=== PATIENT | female | born 1980 | race Caucasian/White ===

== ENCOUNTER 2016-09-12 10:10 | Emergency (ER) | payer OTHER ==
[2016-09-12] MEDS ORDERED: Prochlorperazine 10 MG in Sodium Chloride 0.9% 50 ML IV ONE (10:23)
[2016-09-12] MEDS ORDERED: Ketorolac 30 MG/ML SDV IVPUSH ONE (10:23)
[2016-09-12] MEDS ORDERED: diphenhydrAMINE 50 MG/ML SDV IVPUSH ONE (10:23)
[2016-09-12] MEDS ORDERED: Sodium Chloride 0.9% 10 ML Syringe FLUSH PRN (10:25)
[2016-09-12] MEDS ORDERED: Prochlorperazine 10 MG/2 ML SDV IVPUSH ONE (10:26)
[2016-09-12] MEDS ORDERED: Lactated Ringers 1,000 ML IV SCH (10:30)
--- NOTE | 2016-09-12 11:03 | EDM.PDOC ---
ED HPI GENERAL MEDICAL PROBLEM - General Chief Complaint: Headache Stated Complaint: MIGRAINE Time Seen by Provider: 09/12/16 10:45 Source of Information: Reports: Patient History Limitations: Reports: No Limitations - History of Present Illness INITIAL COMMENTS - FREE TEXT/NARRATIVE: 36 yo female here with a "migraine headache". MOLINA began about week ago and was mild until it got much worse today over about 5 minutes. Has nausea without vomiting. Photophobia. No fever. Some intermittent mild L cheek numbness and diffuse dental pain. No chest pain. Has a hx of migraines when she was much younger, but not for years. This one is a little worse than what she remembers. Drove herself to the ER. MOLINA is not unilateral. Onset: Other Onset Date: 09/05/16 Duration: Day(s):, Getting Worse Location: Reports: Head Quality: Reports: Ache Severity: Severe Improves with: Reports: None Worsens with: Reports: None Context: Reports: Other (Hx of migraine) Associated Symptoms: Reports: Headaches, Loss of Appetite, Nausea/Vomiting (no vomiting). 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 Denies: Fever HEENT: Reports: Dental Pain, Ear Pain Respiratory: Reports: No Symptoms Cardiovascular: Reports: No Symptoms Endocrine: Reports: No Symptoms GI/Abdominal: Reports: Nausea : Reports: No Symptoms Musculoskeletal: Reports: No Symptoms Skin: Reports: No Symptoms Neurological: Reports: Headache, Numbness (intermittent L cheek). Denies: Confusion, Dizziness, Seizure, Syncope, Tremors, Trouble Speaking, Difficulty Walking, Weakness, Change in Speech, Gait Disturbance Psychiatric: Reports: No Symptoms - Physical Exam Exam: See Below Exam Limited By: No Limitations General Appearance: Alert, WD/WN, No Apparent Distress Eye Exam: Bilateral Eye: EOMI, PERRL Ears: Normal External Exam, Normal Canal, Hearing Grossly Normal Nose: Normal Inspection, Normal Mucosa, No Blood Throat/Mouth: Normal Inspection, Normal Lips, Normal Teeth, Normal Oropharynx, Normal Voice, No Airway Compromise Head Exam: Atraumatic, Normocephalic Neck: Normal Inspection, Supple Respiratory/Chest: No Respiratory Distress, Lungs Clear, Normal Breath Sounds, No Accessory Muscle Use Cardiovascular: Regular Rate, Rhythm, No Edema GI/Abdominal: Normal Bowel Sounds, Soft, Non-Tender, No Distention Neuro Exam (Abbreviated): Alert, Oriented, CN II-XII Intact, Normal Cognition, No Motor/Sensory Deficits Back Exam: Normal Inspection Extremities: Normal Inspection, Normal Range of Motion, Non-Tender, No Pedal Edema Psychiatric: Normal Affect, Normal Mood Skin Exam: Warm, Dry, Intact, Normal Color Course - Vital Signs Text/Narrative:: LR 1000 ml IV, Compazine 10 mg IV, diphenhydramine 25 mg IV, Toradol 30 mg IV- better after these meds. Last Recorded V/S: Last Vital Signs Temp 36.4 C 09/12/16 10:56 Pulse 59 L 09/12/16 10:56 Resp 18 09/12/16 10:56 BP 121/109 H 09/12/16 10:56 Pulse Ox 100 09/12/16 10:56 - Orders/Labs/Meds Orders: Active Orders 24 hr Category Date Time Status Lactated Ringers [Ringers, Lactated] 1,000 ml Med 09/12/16 10:30 Active IV ASDIRECTED Sodium Chloride 0.9% [Saline Flush] Med 09/12/16 10:25 Active 10 ml FLUSH ASDIRECTED PRN Saline Lock Insert [OM.PC] Routine Oth 09/12/16 10:25 Ordered Medication Orders Lactated Ringer's (Ringers, Lactated) 1,000 mls @ 999 mls/hr IV ASDIRECTED JASMIN Last Admin: 09/12/16 10:48 Dose: 999 mls/hr Sodium Chloride (Saline Flush) 10 ml FLUSH ASDIRECTED PRN PRN Reason: Keep Vein Open Meds: Medications Generic Name Dose Route Start Last Admin Trade Name Freq PRN Reason Stop Dose Admin Lactated Ringer's 1,000 mls @ 999 mls/hr 09/12/16 10:30 09/12/16 10:48 Ringers, Lactated IV 999 mls/hr ASDIRECTED JASMIN Administration Sodium Chloride 10 ml 09/12/16 10:25 Saline Flush FLUSH ASDIRECTED PRN Keep Vein Open Discontinued Medications Generic Name Dose Route Start Last Admin Trade Name Jamshidq PRN Reason Stop Dose Admin Diphenhydramine HCl 25 mg 09/12/16 10:23 09/12/16 10:49 Benadryl IVPUSH 09/12/16 10:24 25 mg ONETIME ONE Administration Ketorolac Tromethamine 30 mg 09/12/16 10:23 09/12/16 10:49 Toradol IVPUSH 09/12/16 10:24 30 mg ONETIME ONE Administration Prochlorperazine Edisylate 10 mg 09/12/16 10:26 09/12/16 10:49 Compazine IVPUSH 09/12/16 10:27 10 mg ONETIME ONE Administration Departure - Departure Time of Disposition: 11:45 Disposition: Home, Self-Care 01 Condition: Good Clinical Impression: Headache Qualifiers: Headache type: other vascular headache Qualified Code(s): G44.1 - Vascular headache, not elsewhere classified - Discharge Information Prescriptions: Acetaminop/Dichlphn/Isomethept [Midrin 325-100-65 MG] 1 cap PO Q2H PRN #15 cap PRN Reason: Headache Referrals: Mary Montana GROUP EXERCISE MANAGER [Primary Care Provider] - Forms: ED Department Discharge Additional Instructions: Use Midrin as directed for headaches. Consider taking magnesium 400-500 mg daily for MOLINA prophylaxis. Recheck with your doctor in the clinic. Return to the ER if worse and clinic cannot see you. No driving today. - My Orders Last 24 Hours: My Active Orders 09/12/16 10:25 Sodium Chloride 0.9% [Saline Flush] 10 ml FLUSH ASDIRECTED PRN Saline Lock Insert [OM.PC] Routine 09/12/16 10:30 Lactated Ringers [Ringers, Lactated] 1,000 ml IV ASDIRECTED - Assessment/Plan Last 24 Hours: My Active Orders 09/12/16 10:25 Sodium Chloride 0.9% [Saline Flush] 10 ml FLUSH ASDIRECTED PRN Saline Lock Insert [OM.PC] Routine 09/12/16 10:30 Lactated Ringers [Ringers, Lactated] 1,000 ml IV ASDIRECTED
[2016-09-12 11:52] VITALS: BP 152/75
== END 2016-09-12 11:45 | disposition home or self-care (01) ==
LOC: FB.ED 10:10
DX: G44.1 Vascular headache, not elsewhere classified (principal); Z79.899 Other long term (current) drug therapy
CPT/HCPCS: 96361; 96374; 96375; 99283; J0780; J1200; J1885; J7120

== ENCOUNTER 2016-09-20 07:37 | Emergency (ER) | payer OTHER ==
[2016-09-20] MEDS ORDERED: Ketorolac 30 MG/ML SDV IM ONE (08:09)
[2016-09-20] MEDS ORDERED: Ondansetron 4 MG Tab.DIS PO ONE (08:10)
--- NOTE | 2016-09-20 08:17 | EDM.PDOC ---
ED HPI GENERAL MEDICAL PROBLEM - General Chief Complaint: Headache Stated Complaint: HEAD ACHE Time Seen by Provider: 09/20/16 08:00 Source of Information: Reports: Patient, Old Records History Limitations: Reports: No Limitations - History of Present Illness INITIAL COMMENTS - FREE TEXT/NARRATIVE: Roselia returns to [facility] ED with a relapse of throbbing headache that began in the back of scalp and has become generalized since this am. There is some photophobia and nausea, but no vomiting. She was here for treatment of a migraine headache on September 12, and responded to treatment with Compazine and Toradol. She tried some Tylenol at home without change. She did not fill the prescription for Midrin. 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 OB/BYN History: Neurological History: Reports: Migraines Psychiatric History: Reports: Anxiety, Depression - Past Surgical History GI Surgical History: Reports: Appendectomy Social & Family History - Family History Family Medical History: Unobtainable - Tobacco Use Smoking Status *Q: Current Every Day Smoker Years of Tobacco use: 12 Packs/Tins Daily: 1 - Caffeine Use Caffeine Use: Reports: Coffee, Soda, Tea - Recreational Drug Use Recreational Drug Use: Yes Drug Use in Last 12 Months: No Recreational Drug Type: Reports: Methamphetamine ED ROS GENERAL - Review of Systems Review Of Systems: See Below Constitutional: Reports: Malaise HEENT: Reports: Other (photophobia) Respiratory: Reports: No Symptoms Cardiovascular: Reports: No Symptoms Endocrine: Reports: No Symptoms GI/Abdominal: Reports: Nausea : Reports: No Symptoms Musculoskeletal: Reports: No Symptoms Skin: Reports: No Symptoms Neurological: Reports: Headache Psychiatric: Reports: No Symptoms Hematologic/Lymphatic: Reports: No Symptoms Immunologic: Reports: No Symptoms - Physical Exam Exam: See Below Exam Limited By: No Limitations General Appearance: Alert, WD/WN, Moderate Distress Eye Exam: Bilateral Eye: Normal Inspection, PERRL Ears: Normal External Exam, Normal TMs Nose: Normal Inspection Throat/Mouth: Normal Inspection, Normal Lips, Normal Oropharynx, Normal Voice Head Exam: Normocephalic, Scalp Tenderness (occipital) Neck: Normal Inspection, Supple, Non-Tender, Full Range of Motion Respiratory/Chest: Lungs Clear, Normal Breath Sounds Cardiovascular: Regular Rate, Rhythm, No Murmur GI/Abdominal: Normal Bowel Sounds, Soft, Non-Tender, No Organomegaly, No Distention Neuro Exam (Abbreviated): Alert, Oriented, CN II-XII Intact, Normal Cognition, No Motor/Sensory Deficits Back Exam: Normal Inspection Extremities: Normal Inspection Psychiatric: Normal Affect, Normal Mood Skin Exam: Warm, Dry, Intact, Normal Color Course - Vital Signs Text/Narrative:: Following assessment at the [facility] ED, I administered Toradol 30 mg and Zofran 4 mg ODT and provided observation over the next 45 minutes. There was improvement at time of discharge. Last Recorded V/S: Last Vital Signs Temp 36.4 C 09/20/16 07:37 Pulse 66 09/20/16 07:37 Resp 18 09/20/16 07:37 BP 168/83 H 09/20/16 07:37 Pulse Ox 100 09/20/16 07:37 - Orders/Labs/Meds Meds: Medications Discontinued Medications Generic Name Dose Route Start Last Admin Trade Name [place] PRN Reason Stop Dose Admin Ketorolac Tromethamine 30 mg 09/20/16 08:09 09/20/16 08:18 Toradol IM 09/20/16 08:10 30 mg ONETIME ONE Administration Ondansetron HCl 4 mg 09/20/16 08:10 09/20/16 08:18 Zofran Odt PO 09/20/16 08:11 4 mg ONETIME ONE Administration Departure - Departure Time of Disposition: 09:10 Disposition: Home, Self-Care 01 Condition: Fair Clinical Impression: Headache Qualifiers: Headache type: other vascular headache Qualified Code(s): G44.1 - Vascular headache, not elsewhere classified - Discharge Information Instructions: Migraine Headache, [id number] Referrals: Mary Montana OIL LEASE OPERATOR [Primary Care Provider] - Forms: ED Department Discharge - Problem List & Annotations (1) Headache SNOMED Code(s): 04348725 Code(s): R51 - HEADACHE Status: Acute Current Visit: Yes Annotation/ Comment:: Headache with some vascular features. She is clinically improved. I suggested filling the Midrin prescription provided at the last ED visit, and she will comply. Rest, observation, and hydration suggested. She may consider NSAIDs in 4 hrs if needed. Qualifiers: Headache type: other vascular headache Qualified Code(s): G44.1 - Vascular headache, not elsewhere classified - Problem List Review Problem List Initiated/Reviewed/Updated: Yes - Assessment/Plan Plan: Follow up with PCP.
[2016-09-20 09:14] VITALS: BP 145/86
== END 2016-09-20 09:18 | disposition home or self-care (01) ==
LOC: FB.ED 07:37
DX: G44.1 Vascular headache, not elsewhere classified (principal); H54.7 Unspecified visual loss; F17.210 Nicotine dependence, cigarettes, uncomplicated; Z90.49 Acquired absence of other specified parts of digestive tract
CPT/HCPCS: 96372; 99283; A9270; J1885